=== PATIENT | female | born 1980 | race Caucasian/White ===

== ENCOUNTER → 2024-02-25 | Outpatient (CLI) | payer BC, SELFPAY ==
--- NOTE | 2024-02-25 13:00 | XR_ITS ---
Examination: CT maxillofacial, without intravenous contrast. 2-D sagittal reconstructions. 3-D reconstructions. Date and time of exam:February 25, 2024 1337 hours INDICATIONS: Nasal congestion sinus pressure and pain 5 years CTDI: vol (mGy):8.48 DLP: (mGycm):91.7 Technique: Multiple axial images of maxillofacial region, 3.0 mm slice thickness. 2-D sagittal and coronal reconstructions. 3-D reconstructions. Low dose protocols were performed. One or more of the following dose reduction techniques were used; automated exposure control, adjustment of the mA and/or KV according to patient size, use of iterative reconstruction technique. Findings: Frontal air cells clear Mild mucosal thickening ethmoid air cells No occlusion ostiomeatal complexes Pneumatization middle turbinates Mild hypertrophy inferior nasal turbinate on the left with mucosal thickening along the nasal septum up to 6 mm No fluid levels No retention cysts No definite nasopharyngeal mass Mild reduction in mastoid aeration Negative for otitis media Visualized cerebral structures unremarkable IMPRESSION: Mild hypertrophy left inferior nasal turbinate Mucosal thickening involving the nasal septum up to 6 mm.
== END | disposition home or self-care (01) ==
LOC: CCTX 12:33
PROVIDERS: PCP Nurse Practitioner Family; Referring Provider Otolaryngology; Visit Provider Otolaryngology
DX: J34.3 Hypertrophy of nasal turbinates (principal)
CPT/HCPCS: 70486

== ENCOUNTER → 2024-04-16 | Outpatient (CLI) | payer BC, SELFPAY ==
[2024-04-16 09:43] LABS: Glucose Estimated Average 97 mg/dL (80-131)
[2024-04-16 09:50] LABS: Anion Gap 6 (7-16); BUN/Creatinine Ratio 13 Ratio (12-20); Blood Urea Nitrogen 8 mg/dL (9-23); Calcium 9.5 mg/dL (8.3-10.6); Carbon Dioxide 31.5 mMol/L (20.0-31.0); Chloride 104 mMol/L (98-107); Creatinine (Component) 0.6 mg/dL (0.6-1.3); Glucose 98 mg/dL (74-106); Osmolality,Calculated 279 (275-295); Potassium 4.3 mMol/L (3.4-5.1); Sodium 141 mMol/L (136-145); eGFR > 60 See Note
== END | disposition home or self-care (01) ==
LOC: COPL 08:16
PROVIDERS: PCP Nurse Practitioner Family; Referring Provider Nurse Practitioner Family; Visit Provider Nurse Practitioner Family
DX: E11.9 Type 2 diabetes mellitus without complications (principal); I10 Essential (primary) hypertension
CPT/HCPCS: 36415; 80048; 83036

== ENCOUNTER → 2024-04-29 | Outpatient (CLI) | payer BC, SELFPAY | END | disposition home or self-care (01) | LOC: SLDO 14:46 | PROVIDERS: PCP Nurse Practitioner Family; Referring Provider Nurse Practitioner Family; Visit Provider Nurse Practitioner Family | DX: N30.00 Acute cystitis without hematuria (principal) | CPT/HCPCS: 87086 ==

== ENCOUNTER 2024-05-08 10:00 | Day surgery (SDC) | payer BC, SELFPAY ==
--- NOTE | 2024-05-07 06:45 | EKG_ITS ---
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
[2024-05-07 07:13] VITALS: BMI 27.6
[2024-05-07 09:31] LABS: Alanine Aminotransferase 23 U/L (10-49); Albumin, Serum 4.3 gm/dL (3.5-5.0); Albumin/Globulin Ratio 1.7 (1.2-2.2); Alkaline Phosphatase 52 U/L (46-116); Anion Gap 6 (7-16); Aspartate Amino Transferase 21 U/L (0-34); BUN/Creatinine Ratio 14 Ratio (12-20); Bilirubin,Total 0.5 mg/dL (0.3-1.2); Blood Urea Nitrogen 10 mg/dL (9-23); Calcium 9.6 mg/dL (8.3-10.6); Calcium (Corrected) 9.6 mg/dL (8.5-10.1); Carbon Dioxide 30.7 mMol/L (20.0-31.0); Chloride 103 mMol/L (98-107); Creatinine (Component) 0.7 mg/dL (0.6-1.3); Estimated Creatinine Clearance 114.3 mL/min (>60); Globulin 2.5 gm/dL (2.3-3.5); Glucose 114 mg/dL (74-106); Osmolality,Calculated 279 (275-295); Potassium 4.2 mMol/L (3.4-5.1); Sodium 140 mMol/L (136-145); Total Protein 6.8 gm/dL (5.7-8.2); eGFR > 60 See Note
[2024-05-07 09:46] LABS: HCG,Qualitative Serum Negative
[2024-05-08] VITALS (11 sets, daily range): BP systolic 128–184; BP diastolic 60–111; PULSE 60–77; RESP 12–15; TEMP 36.2–36.6; O2SAT 96–100; BMI 27.4
[2024-05-08] MEDS: OXYMETAZOLINE NAS SPRY 0.05% 15 ML BTL NASAL (11:34)
[2024-05-08] MEDS: RINGERS LACTATED 1000 ML 1,000 ML 20 ML IV (11:35)
--- NOTE | 2024-05-08 12:58 | SUR.PHASEI ---
1258: Pt. arrived with oral airway in place, vitals stable, breathing unlabored, no complaint of pain or nausea, dressing beneath nose CDI, no active bleed noted, report received from Adrianna HART and MD Slaughter.
--- NOTE | 2024-05-08 13:01 | PD.SUROPNT ---
Date of Procedure 05/08/24 Pre Op Diagnosis Nasal septal deviation with obstruction Bilateral inferior turbinate hypertrophy Post Op Diagnosis Nasal septal deviation with obstruction Bilateral inferior turbinate hypertrophy Procedure Intranasal septoplasty Bilateral submucous resection inferior turbinates Findings Deviated septum to the right with enlarged inferior turbinates Procedure Description Indications: This 43-year-old female whose suffered from nasal congestion despite medical therapy. Treatment options were discussed as well as risk including bleeding infection nasal deformity. Patient understood this and wished to proceed. Patient was transferred to operative suite where she is anesthetized intubated and sterilely draped. Timeout was performed. Nasal septum as well as the inferior turbinates were injected with 1% lidocaine with 100,000 with epinephrine. Approximately 5 cc total were used. Left inferior turbinate was reduced in submucosal plane with a 2.9 mm turbinate shaver blade. Dissection was performed on insertion and withdrawal. Similar procedure was then performed on the opposite side. Caudal rim incision was then made on the left side of the septum mucosal flap was elevated off the septal cartilage and bone perpendicular plate was from the quadrangular cartilage with a freer elevator and then a mucosal flap elevated off the right side. Leonarda forceps were used to remove the deviated perpendicular plate. This allowed the septum return near midline. Mucosal flaps were reapproximated to the underlying septal cartilage with a 4-0 plain gut suture in a quilting type stitch. This is used to close the rim incision as well. Patient was awakened and taken the recovery room in stable condition Anesthesia GETA Pathology / specimen None Estimated Blood Loss 10 Surgeon Yuri Mack DO Surgical Staff Operation Date: 05/08/24 13:30 <No data on this case meets the specified criteria>
[2024-05-08] MEDS: fentaNYL CIT INJ 50 mCg/ML AMP 2ML 25 MCG IV ×2 (13:16→14:08)
[2024-05-08] MEDS: MORPHINE SULF INJ 10 MG/ML VIAL 3 MG IV ×2 (13:25→13:32)
[2024-05-08] MEDS: hydrALAZINE INJ 20 MG/ML VIAL 10 MG IV (14:03)
--- NOTE | 2024-05-08 14:25 | SUR.PHASEII ---
1425: Pt. AAOx4, vitals stable, breathing unlabored, no complaint of pain or nausea, dressing beneath nose had some blood draining, completed dressing change and educated pt. and her ride how to complete the dressing change, both verbalized understanding, pt. tolerated sips of water well, pt. ambulated to wheelchair with steady gait and no assist, no complications. Gave discharge instructions to the pt. and her ride, both verbalized understanding and had no further questions. Pt. left with all personal belongings.
== END 2024-05-08 14:25 | disposition home or self-care (01) ==
PROVIDERS: Anesthesiology; PCP Family Medicine; Referring Provider Otolaryngology; Visit Provider Otolaryngology
PROC: (CPT 30520; principal; 2024-05-08 13:15)
DX: J34.2 Deviated nasal septum (principal); J34.3 Hypertrophy of nasal turbinates; Z01.810 Encounter for preprocedural cardiovascular examination
CPT/HCPCS: 30520; 30140; 36415; 80053; 84703; 93005; A4217; A4649; J0131; J0360; J0690; J1100; J2250; J2270; J2405; J2704; J3010; J3490; J7040; J7120; A9270

== ENCOUNTER → 2024-06-26 | Outpatient (CLI) | payer BC, SELFPAY ==
[2024-06-26 14:55] LABS: Collection Type, Urine Clean Catch
[2024-06-26 16:18] LABS: Amorphous Crystals,Urine Present (Absent); Bacteria,Urine Rare; Bilirubin,Urine Negative (Negative); Blood,Urine Negative (Negative); Clarity,Urine Turbid (Clear/Hazy); Color,Urine Yellow (Lt Yel-Yel); Glucose, Urine Negative (Negative); Ketones,Urine Negative (Negative); Leukocyte Esterase,Urine Positive (Negative); Nitrite,Urine Negative (Negative); Protein,Urine Negative (Neg - Trace); RBC,Urine 2 /hpf (0-3); Squamous Epithelial Cell,Urine 22 /hpf (0-5); Urobilinogen,Urine Negative mg/dL (0.0-1.0); WBC,Urine 74 /hpf (0-5)
== END | disposition home or self-care (01) ==
LOC: SLDO 14:39
PROVIDERS: PCP Family Medicine; Referring Provider Nurse Practitioner Family; Visit Provider Nurse Practitioner Family
DX: N30.00 Acute cystitis without hematuria (principal)
CPT/HCPCS: 81001; 87086

== ENCOUNTER → 2024-08-18 | Outpatient (CLI) | payer BC, SELFPAY ==
[2024-08-18 09:17] LABS: Collection Type, Urine Clean Catch; RBC,Urine 0 /hpf (0-3)
[2024-08-18 09:50] LABS: Basophils % (Auto) 1 % (0-2.5); Eosinophils # (Auto) 0.1 Thou/mm3 (0.0-0.5); Eosinophils % (Auto) 3 % (0-10); Hematocrit 37.1 % (36.0-46.0); Hemoglobin 13.1 g/dL (12.0-16.0); Immature Granulocytes % (Auto) 0 % (0-0); Immature Granulocytes Auto 0.01 Thou/mm3 (0.00-0.00); Lymphocytes # (Auto) 1.3 Thou/mm3 (1.0-4.8); Lymphocytes % (Auto) 26 % (10-50); Mean Corpuscular HGB Conc 35.3 g/dl (31.0-37.0); Mean Corpuscular Volume 82 fL (80-100); Monocytes # (Auto) 0.4 Thou/mm3 (0.0-0.8); Monocytes % (Auto) 7 % (0-12); Neutrophils # (Auto) 3.3 Thou/mm3 (1.8-7.7); Neutrophils % (Auto) 64 % (37-80); Nucleated Red Blood Cell % 0 /100 WBC (0); Platelet Count 172 Thou/mm3 (140-440); RDW Standard Deviation 35.7 fL (36.4-46.3); Red Blood Count 4.51 Miln/mm3 (4.00-5.20); White Blood Count 5.2 Thou/mm3 (3.6-11.0)
[2024-08-18 09:54] LABS: Bilirubin,Urine Negative (Negative); Blood,Urine Negative (Negative); Clarity,Urine Clear (Clear/Hazy); Color,Urine Lt-Yellow (Lt Yel-Yel); Culture Indicated,Urine Not Indicated; Glucose, Urine Negative (Negative); Ketones,Urine Negative (Negative); Leukocyte Esterase,Urine Negative (Negative); Nitrite,Urine Negative (Negative); Protein,Urine Negative (Neg - Trace); Squamous Epithelial Cell,Urine 4 /hpf (0-5); Urobilinogen,Urine Negative mg/dL (0.0-1.0); WBC,Urine < 1 /hpf (0-5)
[2024-08-18 10:03] LABS: Creatinine MALB Rnd Ur 134 mg/dL (30-125); Microalbumin Creat Ratio 3 mg/gCrea (<30); Microalbumin, Random Urine 4 mg/L (0-300)
[2024-08-18 10:05] LABS: Alanine Aminotransferase 16 U/L (10-49); Albumin/Globulin Ratio 1.8 (1.2-2.2); Alkaline Phosphatase 48 U/L (46-116); Anion Gap 4 (7-16); Aspartate Amino Transferase 17 U/L (0-34); BUN/Creatinine Ratio 10 Ratio (12-20); Bilirubin,Total 0.6 mg/dL (0.3-1.2); Blood Urea Nitrogen 7 mg/dL (9-23); Calcium 8.9 mg/dL (8.3-10.6); Calcium (Corrected) 8.9 mg/dL (8.5-10.1); Carbon Dioxide 28.9 mMol/L (20.0-31.0); Cardiac Risk Estimate 2.6 RATIO (3.7-5.6); Chloride 108 mMol/L (98-107); Cholesterol 132 mg/dL (132-200); Creatinine (Component) 0.7 mg/dL (0.6-1.3); Globulin 2.2 gm/dL (2.3-3.5); Glucose 99 mg/dL (74-106); HDL Cholesterol 51 mg/dL (40-60); LDL Cholesterol,Calculated 71 mg/dL (0-130); Osmolality,Calculated 279 (275-295); Potassium 4.2 mMol/L (3.4-5.1); Sodium 141 mMol/L (136-145); Thyroid Stimulating Hormone 1.88 uIU/mL (0.55-4.78); Total Protein 6.2 gm/dL (5.7-8.2); Triglycerides 52 mg/dL (30-150); Vitamin D 25 Hydroxy Total 27.9 ng/mL (7.3-40.2); eGFR > 60 See Note
[2024-08-18 10:27] LABS: Glucose Estimated Average 94 mg/dL (80-131); Hemoglobin A1C 4.9 % Hgb (4.8-6.0)
== END | disposition home or self-care (01) ==
LOC: COPL 08:08
PROVIDERS: PCP Nurse Practitioner Family; Referring Provider Nurse Practitioner Family; Visit Provider Nurse Practitioner Family
DX: Z00.00 Encounter for general adult medical examination without abnormal findings (principal)
CPT/HCPCS: 36415; 80053; 80061; 81001; 82043; 82306; 82570; 83036; 84443; 85025

== ENCOUNTER → 2024-11-20 | Outpatient (BNVA) | payer BC, SELFPAY | END | disposition home or self-care (01) | PROVIDERS: PCP Family Medicine; Referring Provider Family Medicine; Visit Provider Urology | DX: R10.2 Pelvic and perineal pain (principal); Z96.0 Presence of urogenital implants; E11.9 Type 2 diabetes mellitus without complications; F17.210 Nicotine dependence, cigarettes, uncomplicated; Z87.440 Personal history of urinary (tract) infections | CPT/HCPCS: 81003; 99212; G0463 ==

== ENCOUNTER → 2024-12-29 | Outpatient (CLI) | payer BC, SELFPAY ==
[2024-12-29 11:48] LABS: Blood Urea Nitrogen 13 mg/dL (9-23); Creatinine (Component) 0.7 mg/dL (0.6-1.3); eGFR > 60 See Note
== END | disposition home or self-care (01) ==
LOC: COPL 10:20
PROVIDERS: PCP Family Medicine; Referring Provider Urology; Visit Provider Urology
DX: Z01.89 Encounter for other specified special examinations (principal)
CPT/HCPCS: 36415; 82565; 84520

== ENCOUNTER → 2024-12-31 | Outpatient (CLI) | payer BC, SELFPAY ==
[2024-12-29 12:41] LABS: HCG Qualitative,Urine Negative
--- NOTE | 2024-12-31 10:00 | XR_ITS ---
Examination: CT abdomen with intravenous contrast CT pelvis with intravenous contrast 2-D coronal reconstructions 2-D sagittal reconstructions Date and time of exam: December 31, 2024, 1029 hours INDICATIONS: Lower abdominal pain and frequent urination beginning 1 year ago. CTDI: vol (mGy) 17.7 DLP: (mGycm) 993 Technique: Multiple axial sections of the abdomen and pelvis have been obtained. 64 slice high-resolution scanner used. 3 mm axial sections have been obtained, post intravenous injection 60 cc [id number] 2-D sagittal, coronal reconstructions obtained. Low dose protocols were performed. One or more of the following dose reduction techniques were used; automated exposure control, adjustment of the mA and/or KV according to patient size, use of iterative reconstruction technique. Findings: Tiny left lobe liver cyst No biliary tract dilatation No gallstones No splenic lesion No renal or ureteral calculi, no hydronephrosis Aorta normal size No bowel obstruction Normal appendix No diverticulitis Mild free fluid in the pelvis Suspicious for left adnexal 16 mm cyst Contracted urinary bladder Moderate osteopenia IMPRESSION: No renal or ureteral calculi, no hydronephrosis Normal appendix No diverticulitis Mild free fluid in the pelvis, suspicious for 16 mm left adnexal cyst, consider pelvic sonography follow-up
== END | disposition home or self-care (01) ==
LOC: SCAT 09:50
PROVIDERS: PCP Family Medicine; Referring Provider Urology; Visit Provider Urology
DX: R19.00 Intra-abdominal and pelvic swelling, mass and lump, unspecified site (principal); Z32.00 Encounter for pregnancy test, result unknown
CPT/HCPCS: 74177; 81025; A4649; Q9967